=== PATIENT | female | born 1985 | race Caucasian/White ===

== ENCOUNTER 2017-02-27 12:30 | Emergency (ER) | payer SELFPAY ==
[~2017-02-27] VITALS: Ht 157.5 cm; Wt 101.0 kg
[2017-02-27 12:33] VITALS: BP 153/93; PULSE 96; RESP 16; TEMP 98.4; O2SAT 99
[2017-02-27] MEDS ORDERED: SPRI28TA PO (12:53)
[2017-02-27] MEDS ORDERED: KETO10 PO (12:53)
[2017-02-27 12:56] LABS: GLUCOSE,URINE NEG (NEG); KETONE, URINE NEG (NEG); NITRITE,URINE NEG (NEG)
[2017-02-27 13:00] LABS: BLOOD, URINE TRACE (NEG)
[2017-02-27 13:01] LABS: METHOD OF COLLECTION CLEAN CATCH; URINE COLOR STRAW (YELLW/STRAW)
[2017-02-27 13:02] LABS: BACTERIA, URINE MOD /hpf; COMMENT (UR) CULTURE INDICATED; COMMENT2 (UR) MUCOUS PRESENT; CULTURE IF INDICATED CULTURE INDICATED; RBC, URINE 0-3 /hpf (0-3); SQUAMOUS EPITHELIAL CELL URINE > 8 /hpf (0-5); TRANSITIONAL EPI CELLS, URINE 0-5 /hpf
[2017-02-27] MEDS ORDERED: SODIUM CHLOR 0.9% 1000 ML INJ 1,000 ML IV SCH (13:04)
--- NOTE | 2017-02-27 13:08 | PD ---
HPI Chief Complaint: Abdominal Pain Time Seen by Provider: 12:38 Travel History International Travel<30 days: No Contact w/Intl Traveler<30days: No Traveled to known affect area: No History of Present Illness HPI Patient is a 31-year-old female with history of endometriosis presents with right lower quadrant abdominal pain for the past 36 hours. Patient took some Toradol after she called her regular physician and she called in a prescription for her with minimal relief. She's also been having some emesis of mostly food no bile. She states her last emesis did have some minimal blood streaking in it. She also states she's been having some difficulty urinating and has not noticed any burning or funny smells just makes her queasy. No back pain. No fevers. States she called her regular physician again today who recommended she come up here for evaluation. No vaginal bleeding or vaginal discharge, she states the pain is moderate to severe, right lower quadrant no radiation. PFSH Past Medical History Hx Anticoagulant Therapy: No Diabetes: No Diminished Hearing: No Reproductive: Yes (endometriosis) Tetanus Vaccination: Unknown Influenza Vaccination: No ?: Not LMP: 02/15/17 Past Surgical History Other Surgery: Yes (11 sinus, 3 endometriosis) Social History Alcohol Use: No Tobacco Use: No Substance Use: No Allergies-Medications (Allergen,Severity, Reaction): Coded Allergies: Penicillins (Verified Allergy, Severe, 02/27/17) cephalexin (Verified Allergy, Severe, 02/27/17) Reported Meds & Prescriptions Reported Meds & Active Scripts Active Flagyl (Metronidazole) 500 Mg Tab 500 Mg PO BID 7 Days Ultram (Tramadol HCl) 50 Mg Tab 50 Mg PO Q6H PRN Reported Ketorolac (Ketorolac Tromethamine) 10 Mg Tab 10 Mg PO Q6HR PRN Sprintec 28 (Norgestimate-Ethinyl Estradiol) 0.25-35 mg-Mcg Tab 1 Tab PO DAILY Review of Systems Except as stated in HPI: all other systems reviewed are Neg Physical Exam Narrative GENERAL: Well-developed well-nourished, morbidly obese. SKIN: Focused skin assessment warm/dry. HEAD: Atraumatic. Normocephalic. EYES: Pupils equal and round. No scleral icterus. No injection or drainage. ENT: No nasal bleeding or discharge. Mucous membranes pink and moist. NECK: Trachea midline. No JVD. CARDIOVASCULAR: Regular rate and rhythm. No murmur appreciated. RESPIRATORY: No accessory muscle use. Clear to auscultation. Breath sounds equal bilaterally. GASTROINTESTINAL: Abdomen soft, non-tender, nondistended. Hepatic and splenic margins not palpable. Piña sign negative, there is some tenderness at McBurney's point, no rebound no percussive tenderness. Psoas sign is weakly positive, obturator sign negative. GENITOURINARY: Exam performed with female nurse director embalmer present all times, no lesion seen externally nor internally, no bleeding, cervix closed, no true bimanual tenderness to the patient is already had morphine at this point, no cervical motion tenderness, small amount of curd-like vaginal discharge consistent with yeast infection. MUSCULOSKELETAL: No obvious deformities. No clubbing. No cyanosis. No edema. NEUROLOGICAL: Awake and alert. No obvious cranial nerve deficits. Motor grossly within normal limits. Normal speech. PSYCHIATRIC: Appropriate mood and affect; insight and judgment normal. Data Data Last Documented VS Vital Signs Date Time Temp Pulse Resp B/P (MAP) Pulse Ox O2 Delivery O2 Flow Rate FiO2 02/27/17 16:20 02/27/17 15:28 87 18 98 Room Air 02/27/17 12:33 98.4 Orders Orders Urinalysis - C+S If Indicated (02/27/17 12:32) Ed Urine Pregnancytest Poc (02/27/17 12:32) Urine Culture (02/27/17 12:40) Complete Blood Count With Diff (02/27/17 13:04) Comprehensive Metabolic Panel (02/27/17 13:04) Lipase (02/27/17 13:04) Ct Abd/Pel W Iv Contrast(Rout) (02/27/17 13:04) Iv Access Insert/Monitor (02/27/17 13:04) Ecg Monitoring (02/27/17 13:04) Oximetry (02/27/17 13:04) Morphine Inj (Morphine Inj) (02/27/17 13:15) Ondansetron Inj (Zofran Inj) (02/27/17 13:15) Sodium Chlor 0.9% 1000 Ml Inj (Ns 1000 M (02/27/17 13:04) Sodium Chloride 0.9% Flush (Ns Flush) (02/27/17 13:15) Wet Prep Profile (02/27/17 13:04) Gc And Chlamydia Pcr (02/27/17 13:04) Iohexol 350 Inj (Omnipaque 350 Inj) (02/27/17 13:57) Us Pelvis Comp W Dop Transvag (02/27/17 ) Ed Discharge Order (02/27/17 16:00) Labs Laboratory Tests Test 02/27/17 12:40 02/27/17 13:15 02/27/17 14:15 Urine Collection Type CLEAN CATCH Urine Color STRAW Urine Turbidity MOD Urine pH 6.0 Urine Specific [place] 1.011 Urine Protein NEG mg/dL Urine Glucose (UA) NEG mg/dL Urine Ketones NEG mg/dL Urine Occult Blood TRACE Urine Nitrite NEG Urine Bilirubin NEG Urine Leukocyte Esterase MOD Urine RBC 0-3 /hpf Urine WBC 9-14 /hpf Urine WBC Clumps FEW Urine Squamous Epithelial Cells > 8 /hpf Urine Transitional Epithelial Cells 0-5 /hpf Urine Amorphous Sediment FEW Urine Bacteria MOD /hpf Microscopic Urinalysis Comment CULTURE INDICATED Urine Collection Time 1240 White Blood Count 13.0 TH/MM3 Red Blood Count 4.56 MIL/MM3 Hemoglobin 12.1 GM/DL Hematocrit 36.2 % Mean Corpuscular Volume 79.5 FL Mean Corpuscular Hemoglobin 26.4 PG Mean Corpuscular Hemoglobin Concent 33.3 % Red Cell Distribution Width 13.6 % Platelet Count 233 TH/MM3 Mean Platelet Volume 9.3 FL Neutrophils (%) (Auto) 75.5 % Lymphocytes (%) (Auto) 17.9 % Monocytes (%) (Auto) 3.9 % Eosinophils (%) (Auto) 2.2 % Basophils (%) (Auto) 0.5 % Neutrophils # (Auto) 9.8 TH/MM3 Lymphocytes # (Auto) 2.3 TH/MM3 Monocytes # (Auto) 0.5 TH/MM3 Eosinophils # (Auto) 0.3 TH/MM3 Basophils # (Auto) 0.1 TH/MM3 CBC Comment DIFF FINAL Differential Comment Blood Urea Nitrogen 10 MG/DL Creatinine 0.95 MG/DL Random Glucose 118 MG/DL Total Protein 7.2 GM/DL Albumin 3.1 GM/DL Calcium Level 8.5 MG/DL Alkaline Phosphatase 81 U/L Aspartate Amino Transf (AST/SGOT) 11 U/L Alanine Aminotransferase (ALT/SGPT) 23 U/L Total Bilirubin 0.2 MG/DL Sodium Level 137 MEQ/L Potassium Level 3.5 MEQ/L Chloride Level 104 MEQ/L Carbon Dioxide Level 25.7 MEQ/L Anion Gap 7 MEQ/L Estimat Glomerular Filtration Rate 68 ML/MIN Lipase 190 U/L Clue Cells (Wet Prep) NONE SEEN Vaginal Trichomonas (Wet Prep) NONE SEEN Vaginal Yeast (Wet Prep) NONE SEEN Chlamydia trachomatis DNA (PCR) NOT DETECTED Neisseria gonorrhoeae DNA (PCR) NOT DETECTED MDM Medical Decision Making Medical Screen Exam Complete: Yes Emergency Medical Condition: Yes Differential Diagnosis Document pelvic Narrative Course Patient roomed emerged permit, morphine and Zofran given, fairly localized pain to the right lower quadrant. I'm concerned for appendicitis. CT abdomen and pelvis shows no abnormality, on bimanual exam is really unimpressive. Transvaginal ultrasound was ordered and does show no definitive arterial Doppler on the left. The patient has not had any symptoms on the left. I discussed these findings with Dr. Quevedo there is no edema and no cysts and no other structure abnormality of the left ovary. He states given these findings highly unlikely the patient is torsed and he would not recommend any exploratory surgery at this time. Furthermore the patient informs me that she is already and preoperative planning for a total hysterectomy given her history of endometriosis is just waiting for insurance to kick in and then Dr. Harrison will be taking out her uterus and ovaries. The patient does not planning on having any children herself but is considering adoption already. All this being considered there is no indication further workup or treatment at this time. Discussed outpatient needs to call Dr. Harrison today for further evaluation. She stable for discharge. Diagnosis Primary Impression: Pelvic pain in female Med/Other Pt SpecificInfo: Prescription(s) given Scripts Metronidazole (Flagyl) 500 Mg Tab 500 MG PO BID for Infection for 7 Days, #14 TAB 0 Refills Prov: Sebastián White MD 02/27/17 Tramadol (Ultram) 50 Mg Tab 50 MG PO Q6H Y for PAIN, #15 TAB 0 Refills Prov: Sebastián White MD 02/27/17 Disposition: 01 DISCHARGE HOME Condition: Stable Sebastián White MD Feb 27, 2017 13:08
[2017-02-27 13:15] VITALS: RESP 18; O2SAT 97
[2017-02-27] MEDS ORDERED: ONDANSETRON HCL 4 MG/2 ML VIAL IVP ONE (13:15)
[2017-02-27] MEDS ORDERED: MORPHINE SULFATE 4 MG/ML INJ IV PUSH ONE (13:15)
[2017-02-27] MEDS ORDERED: SODIUM CHLORIDE 0.9% FLUSH 10 ML FLUSH IV FLUSH PRN (13:15)
[2017-02-27 13:26] LABS: AUTOMATED NEUTROPHIL # 9.8 TH/MM3 (1.8-7.7); BASOPHIL # 0.1 TH/MM3 (0-0.2); BASOPHIL % 0.5 % (0.0-2.0); EOSINOPHIL # 0.3 TH/MM3 (0-0.4); EOSINOPHIL % 2.2 % (0.0-4.0); HEMATOCRIT 36.2 % (35.0-46.0); LYMPH % 17.9 % (9.0-44.0); LYMPHOCYTE # 2.3 TH/MM3 (1.0-4.8); MEAN CELL VOLUME 79.5 FL (80.0-100.0); MEAN CORPUSCULAR HEMOGLOBIN 26.4 PG (27.0-34.0); MEAN CORPUSCULAR HGB CONC 33.3 % (32.0-36.0); MONO % 3.9 % (0.0-8.0); NEUT % 75.5 % (16.0-70.0); PLATELET COUNT 233 TH/MM3 (150-450); RED BLOOD COUNT 4.56 MIL/MM3 (4.00-5.30); RED CELL DISTRIBUTION WIDTH 13.6 % (11.6-17.2)
[2017-02-27 13:43] LABS: HEMO FLAGS DIFF FINAL
[2017-02-27 13:44] LABS: CHLORIDE 104 MEQ/L (98-107); POTASSIUM 3.5 MEQ/L (3.5-5.1); SODIUM (NA) 137 MEQ/L (136-145)
[2017-02-27 13:48] LABS: ANION GAP 7 MEQ/L (5-15); BICARBONATE 25.7 MEQ/L (21.0-32.0)
[2017-02-27 13:49] LABS: BLOOD UREA NITROGEN 10 MG/DL (7-18)
[2017-02-27 13:51] LABS: ALT (GPT) 23 U/L (10-53); AST (GOT) 11 U/L (15-37); GLOMERULAR FILTRATION RATE 68 ML/MIN (>89)
[2017-02-27 13:53] LABS: TOTAL BILIRUBIN ADULT 0.2 MG/DL (0.2-1.0)
[2017-02-27 13:54] LABS: ALKALINE PHOSPHATASE 81 U/L (45-117)
[2017-02-27] MEDS ORDERED: IOHEXOL 350 MG/ML 10 ML VIAL (for RAD DIAG) IVCONTRAST ONE (13:57)
[2017-02-27 14:00] VITALS: BP 133/83; PULSE 90; RESP 18; O2SAT 97
--- NOTE | 2017-02-27 14:33 | RADRPT ---
EXAM DATE/TIME: 02/27/2017 13:45 [facility] COMPARISON: No previous studies available for comparison. INDICATIONS : Right lower quadrant pain, nausea, vomiting and constipation x 2 days. IV CONTRAST: 85 cc Omnipaque 350 (iohexol) IV ORAL CONTRAST: No oral contrast ingested. RADIATION DOSE: 21.34 CTDIvol (mGy) MEDICAL HISTORY : None SURGICAL HISTORY : None. ENCOUNTER: Initial ACUITY: 2 days PAIN SCALE: 8/10 LOCATION: Right lower quadrant TECHNIQUE: Volumetric scanning of the abdomen and pelvis was performed. Using automated exposure control and ad justment of the mA and/or kV according to patient size, radiation dose was kept as low as reasonably achievable to obtain optimal diagnostic quality images. DICOM format image data is available electro nically for review and comparison. FINDINGS: LOWER LUNGS: The visualized lower lungs are clear. LIVER: Homogeneous density without lesion. There is no dilation of the biliary tree. No calcified gallston es. SPLEEN: Normal size without lesion. PANCREAS: Within normal limits. KIDNEYS: Normal in size and shape. There is no mass, stone or hydronephrosis. 1.8 cm simple cyst is identifie d in the lower pole the left kidney. ADRENAL GLANDS: Within normal limits. VASCULAR: There is no aortic aneurysm. BOWEL/MESENTERY: The stomach, small bowel, and colon demonstrate no acute abnormality. There is no free intraperitone al air or fluid. ABDOMINAL WALL: Within normal limits. RETROPERITONEUM: There is no lymphadenopathy. BLADDER: No wall thickening or mass. REPRODUCTIVE: Within normal limits. INGUINAL: There is no lymphadenopathy or hernia. MUSCULOSKELETAL: Within normal limits for patient age. CONCLUSION: No acute disease. Simple left renal cyst. Robby Turner MD on February 27, 2017 at 14:28 Board Certified Radiologist. This report was verified electronically.
[2017-02-27 15:28] VITALS: BP 117/58; PULSE 87; RESP 18; O2SAT 98
--- NOTE | 2017-02-27 15:42 | RADRPT ---
EXAM DATE/TIME: 02/27/2017 14:37 [facility] COMPARISON: No previous studies available for comparison. INDICATIONS : Right pelvic pain. MEDICAL HISTORY : Endometriosis. SURGICAL HISTORY : Sinus surgery. Pelvic surgery for endometriosis. ENCOUNTER: Initial ACUITY: 1 day PAIN SCORE: 8/10 LOCATION: Bilateral pelvis MEASUREMENTS: UTERUS: 9.0 x 5.4 x 4.5 cm ENDOMETRIAL STRIPE: 5 mm RIGHT OVARY: 2.1 x 1.9 x 2.0 cm LEFT OVARY: Not visualized. FINDINGS: UTERUS: The myometrium has homogeneous echotexture without mass. RIGHT OVARY: Ovary contains no mass or significant cystic lesion.Normal flow is identified on Doppler. LEFT OVARY: Ovary contains no mass or significant cystic lesion. Arterial flow could not be confirmed with Dopple r. MISCELLANEOUS: No free fluid. CONCLUSION: 1. Normal uterus and right ovary. 2. Normal appearing left ovary however arterial flow could not be documented with Doppler. Robby Turner MD on February 27, 2017 at 15:39 Board Certified Radiologist. This report was verified electronically.
[2017-02-27] MEDS ORDERED: METR-1 PO (16:04)
[2017-02-27] MEDS ORDERED: TRAM50 PO (16:04)
[2017-02-27 17:56] LABS: CHLAMYDIA PCR NOT DETECTED (NOT DETECT); NEISSERIA PCR NOT DETECTED (NOT DETECT)
== END 2017-02-27 16:21 | disposition home or self-care (01) ==
LOC: PHED 12:30
DX: R10.2 Pelvic and perineal pain (principal); N80.9 Endometriosis, unspecified; R11.10 Vomiting, unspecified
CPT/HCPCS: 74177; 76830; 76856; 80053; 81001; 83690; 84703; 85025; 87086; 87210; 87491; 87591; 93975; 96361; 96374; 96375; 99285; J2270; J2405; J7030; Q9967

== ENCOUNTER 2017-03-01 17:48 | Emergency (ER) | payer SELFPAY ==
[~2017-03-01] VITALS: Ht 157.5 cm; Wt 100.3 kg
[~2017-03-01 17:48] MED LIST: KETO10 PO; METR-1 PO; SPRI28TA PO; TRAM50 PO
[2017-03-01 17:51] VITALS: BP 170/100; PULSE 94; RESP 16; TEMP 98.4; O2SAT 97
[2017-03-01] MEDS ORDERED: SODIUM CHLOR 0.9% 1000 ML INJ 1,000 ML IV ONE (18:15)
[2017-03-01] MEDS ORDERED: MORPHINE SULFATE 4 MG/ML INJ IV PUSH ONE (18:15)
[2017-03-01] MEDS ORDERED: ONDANSETRON HCL 4 MG/2 ML VIAL IV PUSH ONE (18:15)
[2017-03-01 18:46] LABS: AUTOMATED NEUTROPHIL # 4.7 TH/MM3 (1.8-7.7); BASOPHIL # 0.1 TH/MM3 (0-0.2); BASOPHIL % 1.3 % (0.0-2.0); EOSINOPHIL # 0.3 TH/MM3 (0-0.4); EOSINOPHIL % 3.2 % (0.0-4.0); HEMATOCRIT 36.9 % (35.0-46.0); HEMO FLAGS DIFF FINAL; LYMPH % 32.3 % (9.0-44.0); LYMPHOCYTE # 2.8 TH/MM3 (1.0-4.8); MEAN CELL VOLUME 79.8 FL (80.0-100.0); MEAN CORPUSCULAR HGB CONC 32.6 % (32.0-36.0); NEUT % 55.2 % (16.0-70.0); PLATELET COUNT 249 TH/MM3 (150-450); RED BLOOD COUNT 4.62 MIL/MM3 (4.00-5.30); RED CELL DISTRIBUTION WIDTH 13.9 % (11.6-17.2); WHITE BLOOD COUNT 8.6 TH/MM3 (4.0-11.0)
--- NOTE | 2017-03-01 18:50 | PD ---
HPI Chief Complaint: Public Safety Director Problem/Complaint Time Seen by Provider: 17:58 Travel History International Travel<30 days: No Contact w/Intl Traveler<30days: No Traveled to known affect area: No History of Present Illness HPI Patient is a 31-year-old female with history of endometriosis, who comes in complaining of lower abdominal pain. She was here a few days ago and had a pelvic ultrasound performed. There was a concern on the ultrasound at that time with no flow to the left ovary, however the air defense specialist at the time felt it did not appear to be torsion. She was told to return if her pain got worse. She says the pain has become worse and now is spreading across her abdomen. She had some nausea, but no vomiting. She denies fever or chills. She does have some low back pain. She has appointment with her air defense specialist on Saturday. Her air defense specialist suggested she come here since she was unable to fit her in today. She has been taking tramadol for the pain, but says it's not helping. PFSH Past Medical History Hx Anticoagulant Therapy: No Diabetes: No Diminished Hearing: No Reproductive: Yes (endometriosis) Tetanus Vaccination: Unknown ?: Not LMP: 02/15/17 Past Surgical History Other Surgery: Yes (11 sinus, 3 endometriosis) Social History Alcohol Use: No Tobacco Use: No Substance Use: No Allergies-Medications (Allergen,Severity, Reaction): Coded Allergies: Penicillins (Verified Allergy, Severe, 03/01/17) cephalexin (Verified Allergy, Severe, 03/01/17) Reported Meds & Prescriptions Reported Meds & Active Scripts Active Reported Sprintec 28 (Norgestimate-Ethinyl Estradiol) 0.25-35 mg-Mcg Tab 1 Tab PO DAILY Review of Systems Except as stated in HPI: all other systems reviewed are Neg General / Constitutional: No: Fever, Chills HENT: No: Headaches, Lightheadedness Cardiovascular: No: Chest Pain or Discomfort Respiratory: No: Shortness of Breath Gastrointestinal: Positive: Nausea, Abdominal Pain, No: Vomiting Genitourinary: Positive: Dysuria, No: Flank Pain Musculoskeletal: No: Myalgias, Edema Skin: No Rash, No Change in Pigmentation Neurologic: No: Weakness, Dizziness Physical Exam Narrative GENERAL: Awake and alert, in no acute distress. SKIN: Focused skin assessment warm/dry. HEAD: Atraumatic. Normocephalic. EYES: Pupils equal and round. No scleral icterus. ENT: Mucous membranes pink and moist. NECK: Trachea midline. No JVD. CARDIOVASCULAR: Regular rate and rhythm. No murmur appreciated. RESPIRATORY: No accessory muscle use. Clear to auscultation. Breath sounds equal bilaterally. GASTROINTESTINAL: Abdomen soft, nondistended. Tender to palpation across the lower abdomen. Worse in the right lower quadrant and suprapubic area. MUSCULOSKELETAL: No obvious deformities. No clubbing. No cyanosis. No edema. NEUROLOGICAL: Awake and alert. No obvious cranial nerve deficits. Motor grossly within normal limits. Normal speech. PSYCHIATRIC: Appropriate mood and affect; insight and judgment normal. Data Data Last Documented VS Vital Signs Date Time Temp Pulse Resp B/P (MAP) Pulse Ox O2 Delivery O2 Flow Rate FiO2 03/01/17 17:51 98.4 94 16 170/100 (123) 97 Orders Orders Iv Access Insert/Monitor (03/01/17 18:09) Complete Blood Count With Diff (03/01/17 18:09) Comprehensive Metabolic Panel (03/01/17 18:09) Us Pelvis Comp Public Safety Director/Non-Preg (03/01/17 ) Morphine Inj (Morphine Inj) (03/01/17 18:15) Ondansetron Inj (Zofran Inj) (03/01/17 18:15) Sodium Chlor 0.9% 1000 Ml Inj (Ns 1000 M (03/01/17 18:15) Labs Laboratory Tests Test 03/01/17 18:35 [facility] Medical Decision Making Medical Screen Exam Complete: Yes Emergency Medical Condition: Yes Medical Record Reviewed: Yes Differential Diagnosis Ovarian torsion versus endometriosis versus UTI Narrative Course Patient is a 31-year-old female who comes in complaining of lower abdominal pain. Exam shows suprapubic tenderness as well as right lower quadrant tenderness. IV established, labs sent. Ultrasound ordered to recheck the left ovary. Patient signed out to Dr. Landeros to follow up testing and disposition the patient. Lupe Fernando MD Mar 01, 2017 18:50
[2017-03-01 18:55] VITALS: BP 122/75; PULSE 78; RESP 14; O2SAT 98
[2017-03-01 18:55] LABS: CHLORIDE 105 MEQ/L (98-107); SODIUM (NA) 138 MEQ/L (136-145)
[2017-03-01 18:59] LABS: ANION GAP 9 MEQ/L (5-15); BICARBONATE 23.6 MEQ/L (21.0-32.0); BLOOD UREA NITROGEN 10 MG/DL (7-18)
[2017-03-01 19:02] LABS: ALT (GPT) 23 U/L (10-53); AST (GOT) 10 U/L (15-37); GLOMERULAR FILTRATION RATE 81 ML/MIN (>89)
[2017-03-01 19:04] LABS: TOTAL BILIRUBIN ADULT 0.2 MG/DL (0.2-1.0)
[2017-03-01 19:05] LABS: ALKALINE PHOSPHATASE 72 U/L (45-117)
--- NOTE | 2017-03-01 19:26 | PD ---
Physical Exam Date Seen by Provider: Mar 01, 2017 Time Seen by Provider: 19:25 Narrative Accepted in transfer of care from Dr. Fernando GENERAL: Well developed well-nourished female in no acute distress no respiratory distress GASTROINTESTINAL: Abdomen soft, non-tender, nondistended. . Data Data Last Documented VS Vital Signs Date Time Temp Pulse Resp B/P (MAP) Pulse Ox O2 Delivery O2 Flow Rate FiO2 03/01/17 18:55 78 14 03/01/17 18:55 122/75 (91) 98 Room Air 03/01/17 17:51 98.4 Orders Orders Iv Access Insert/Monitor (03/01/17 18:09) Complete Blood Count With Diff (03/01/17 18:09) Comprehensive Metabolic Panel (03/01/17 18:09) Morphine Inj (Morphine Inj) (03/01/17 18:15) Ondansetron Inj (Zofran Inj) (03/01/17 18:15) Sodium Chlor 0.9% 1000 Ml Inj (Ns 1000 M (03/01/17 18:15) Us Pelvis Comp W Doppler (03/01/17 ) Ketorolac Inj (Toradol Inj) (03/01/17 20:30) Ed Discharge Order (03/01/17 20:26) Labs Laboratory Tests Test 03/01/17 18:35 White Blood Count 8.6 TH/MM3 Red Blood Count 4.62 MIL/MM3 Hemoglobin 12.0 GM/DL Hematocrit 36.9 % Mean Corpuscular Volume 79.8 FL Mean Corpuscular Hemoglobin 26.0 PG Mean Corpuscular Hemoglobin Concent 32.6 % Red Cell Distribution Width 13.9 % Platelet Count 249 TH/MM3 Mean Platelet Volume 9.1 FL Neutrophils (%) (Auto) 55.2 % Lymphocytes (%) (Auto) 32.3 % Monocytes (%) (Auto) 8.0 % Eosinophils (%) (Auto) 3.2 % Basophils (%) (Auto) 1.3 % Neutrophils # (Auto) 4.7 TH/MM3 Lymphocytes # (Auto) 2.8 TH/MM3 Monocytes # (Auto) 0.7 TH/MM3 Eosinophils # (Auto) 0.3 TH/MM3 Basophils # (Auto) 0.1 TH/MM3 CBC Comment DIFF FINAL Differential Comment Blood Urea Nitrogen 10 MG/DL Creatinine 0.82 MG/DL Random Glucose 98 MG/DL Total Protein 7.6 GM/DL Albumin 3.3 GM/DL Calcium Level 8.6 MG/DL Alkaline Phosphatase 72 U/L Aspartate Amino Transf (AST/SGOT) 10 U/L Alanine Aminotransferase (ALT/SGPT) 23 U/L Total Bilirubin 0.2 MG/DL Sodium Level 138 MEQ/L Potassium Level 4.0 MEQ/L Chloride Level 105 MEQ/L Carbon Dioxide Level 23.6 MEQ/L Anion Gap 9 MEQ/L Estimat Glomerular Filtration Rate 81 ML/MIN [facility] Medical Record Reviewed: Yes Supervised Visit with SHANE: No Interpretation(s) Last Impressions Pelvis Ultrasound 03/01/17 0000 Signed Impressions: Service Date/Time: Wednesday, March 01, 2017 18:56 - CONCLUSION: 1. Some free fluid within the cul-de-sac. 2. Small right ovarian cyst measuring 1.5 cm in greatest dimension. 3. Unremarkable uterus and left ovary. Sebastián Naranjo MD (@ 20:[address] Naranjo --"blood flow is noted to both ovaries") CBC & BMP Diagram 03/01/17 18:35 Total Protein 7.6, Albumin 3.3 L, Calcium Level 8.6, Alkaline Phosphatase 72, Aspartate Amino Transf (AST/SGOT) 10 L, Alanine Aminotransferase (ALT/SGPT) 23, Total Bilirubin 0.2 Vital Signs Date Time Temp Pulse Resp B/P (MAP) Pulse Ox O2 Delivery O2 Flow Rate FiO2 03/01/17 18:55 78 14 03/01/17 18:55 78 14 122/75 (91) 98 Room Air 03/01/17 18:55 14 03/01/17 17:51 98.4 94 16 170/100 (123) 97 Differential Diagnosis Accepted in transfer of care from Dr. Fernando, please refer to her dictation Narrative Course Accepted in transfer of care from Dr. Fernando for follow-up of pending ultrasound results At 20:15 p.m. patient ultrasound is identified to show small amount of free fluid in the cul-de-sac small ovarian cyst on the right and per reading radiologist Dr. Naranjo. Blood flow to both ovaries. Patient is stable for outpatient management and follow-up with her field operations technician. Patient informed of imaging results and is stable for outpatient management continues to have some soreness to the right lower quadrant. Pain is felt to be related to probably ruptured small ovarian cyst and her history of endometriosis patient has good blood flow to both ovaries unlikely that this has a correlation with ovarian torsion. Visit on 02/27/17 identified an abnormal urinalysis however culture is only 10-50,000 of mixed gram-positive cassie consistent with contaminant. Diagnosis Primary Impression: Pelvic pain in female Additional Impressions: Ovarian cyst Qualified Codes: N83.201 - Unspecified ovarian cyst, right side History of endometriosis Referrals: Paper Products Supervisor 2 days Patient Instructions: General Instructions Additional Instruction: Follow-up with field operations technician call office on Saturday schedule follow-up appointment Take Anaprox as needed for pain associated with inflammation Increase fluid hydration Return to the emergency for for fever pain vomiting or any concerns no work 2 days Med/Other Pt SpecificInfo: Prescription(s) given Scripts Naproxen Sodium DS (Anaprox DS) 550 Mg Tab 550 MG PO Q12HR Y for PAIN GREATER THAN 5, #12 TAB 0 Refills Prov: Esha Landeros MD 03/01/17 Disposition: 01 DISCHARGE HOME Condition: Stable Esha Landeros MD Mar 01, 2017 19:26
--- NOTE | 2017-03-01 19:52 | RADRPT ---
EXAM DATE/TIME: 03/01/2017 18:56 CORRECTION Corrected on: March 01, 2017; [facility] COMPARISON: No previous studies available for comparison. INDICATIONS : Pelvic pain. MEDICAL HISTORY : Pelvic pain. Endometriosis. SURGICAL HISTORY : None. ENCOUNTER: Initial ACUITY: 4-6 days PAIN SCORE: 8/10 LOCATION: Right pelvis MEASUREMENTS: UTERUS: 9.7 x 3.9 x 5.9 cm ENDOMETRIAL STRIPE: 9 mm RIGHT OVARY: 3.8 x 2.4 x 2.4 cm LEFT OVARY: 2.6 x 1.4 x 2.1 cm FINDINGS: UTERUS: The myometrium has homogeneous echotexture without mass. RIGHT OVARY: There is a small right ovarian cyst measuring 1.5 x 0.8 x 0.9 cm. Blood flow is identified. LEFT OVARY: Ovary contains no mass or significant cystic lesion. Blood flow is identified. MISCELLANEOUS: Some free fluid is noted within the cul-de-sac. CONCLUSION: 1. Blood flow to both ovaries is noted. 2. Some free fluid within the cul-de-sac. 3. Small right ovarian cyst measuring 1.5 cm in greatest dimension. 4. Unremarkable uterus and left ovary. Sebastián Naranjo MD on March 01, 2017 at 19:48 Board Certified Radiologist. This report was verified electronically. Sebastián Naranjo MD on March 01, 2017 at 20:22 Board Certified Radiologist. This report was verified electronically.
[2017-03-01] MEDS ORDERED: NAPR5TAB5 PO (20:24)
[2017-03-01 20:30] VITALS: BP 118/62; PULSE 79; RESP 14; O2SAT 98
[2017-03-01] MEDS ORDERED: KETOROLAC TROMETHAMINE 30 MG/ML (IVP) VIAL IV PUSH ONE (20:30)
== END 2017-03-01 20:54 | disposition home or self-care (01) ==
LOC: PHED 17:48
DX: N83.201 Unspecified ovarian cyst, right side (principal); R10.2 Pelvic and perineal pain; N80.9 Endometriosis, unspecified
CPT/HCPCS: 76856; 80053; 85025; 93975; 96361; 96374; 96375; 99285; J1885; J2270; J2405; J7030

== ENCOUNTER 2017-07-12 08:36 | Inpatient (IN) | payer OTHER ==
[2017-07-12] VITALS: BP 120/58; PULSE 74; RESP 18; TEMP 98.4; O2SAT 98
[~2017-07-12] VITALS: Ht 160 cm; Wt 98.1 kg
--- NOTE | 2017-07-12 07:30 | PD.OP ---
Operative Report Date of Surgery: Jul 12, 2017 Preoperative Diagnosis: (1) Endometriosis of pelvic peritoneum (2) Bilateral polycystic ovarian syndrome (3) Pelvic and perineal pain Postoperative Diagnosis: (1) Endometriosis of pelvic peritoneum (2) Bilateral polycystic ovarian syndrome (3) Pelvic and perineal pain (4) Adnexal adhesions (5) Pelvic adhesions Procedure: 1. supracervical abdominal hysterectomy 2. bilateral salpingo-oophorectomy 3. EMMIE Anesthesia: GETA Surgeon: Brooklyn Harrison Buffing Wheel Presser(s): OR staff Operation and Findings: IVF: 1700 ml LR + IV antibiotics given prior to surgery + Methylene blue EBL: 100 ml UO: 200 ml Findings: 1, extensive pelvic and abdominal adhesions 2. extensive endometriosis 3. normal size uterus, normal tubes and ovaries Specimens: uterus, tubes and ovaries Complications: none Condition: stable Disposition: PACU Description of the procedure: The risks, benefits and alternatives of the procedure were discussed with the patient. Informed consent was obtained after questions were answered. The patient was then transferred to the operating room with her IV running. Antibiotics were given prior to surgery. She was placed in the supine position and was given general anesthesia without difficulties or complications. The patient was placed in the dorsal lithotomy position and was prepped and draped in the usual sterile fashion . Attention was then turned to the patient's pelvis. A bivalve speculum was placed inside the patient's vagina. The anterior aspect of the cervix was grasped with a single tooth tenaculum for manipulation. The cervix was carefully dilated. A uterine manipulator was placed inside the uterus. The rest of the instruments were removed from the patient's vagina. The surgeon changed gloves and attention was then turned to the patient's abdomen. A Pfannenstiel skin incision was then made with the scalpel. The incision was extended to the fascia with the Bovie. The fascia was incised in the midline with a scalpel. The fascial incision was then extended sharply with Mendez scissors. Next, the rectus muscles were in the midline with a hemostat and the peritoneum was identified and entered bluntly. Lysis of adhesions was needed several times during the procedure in order to proceed with surgery. A [place] retractor was placed inside the patient's abdomen. Care was taken to place moist laps under the blades. The bowel was carefully packed away with moist laparotomy sponges. A bladder blade was also introduced inside the pelvic cavity. The left round ligament was identified, clamped, electrocauterized and cut the hand held Harmonic scalpel. Adequate hemostasis was noted. The left infundibulopelvic ligament was clamped, electrocauterized and cut the the hand-held Harmonic scalpel The same was done on the right side after lysis of adhesions allowed the procedure to continue. Good hemostasis was noted as well. The tissues along the uterus were serially doubly clamped, transected and suture ligated times two with 0-Vicryl. Good hemostasis was noted. The utero-cervical junction was transected with the Bovie. The tissues were removed and sent to pathology. Running, locked stitches of 0-Vicryl were used along the cervix and vaginal cuff angles in order to achieve excellent hemostasis. The endocervix was electrocauterized with the Bovie. Copious irrigation was done several times. The ureters were not identified well due to the difficulty of the surgery and the adhesions encountered. Methylene blue dye was given at the beginning of the surgery; no spillage or blockage was noted. Excellent hemostasis was noted at all the surgical sites and pedicles. Surgicel powder was placed over the cervix and surgical sites. All the instruments were removed from the patient's pelvis and vagina. The instrument count was correct times three. The bowel was carefully inspected and noted to be intact. The peritoneum was closed with running stitches of 0 Vicryl. The rectus muscles were reapproximated with running stitches of 0-Vicryl. The fascia was reapproximated with running stitches of looped 0-PDS. The subcutaneous tissues were copiously irrigated and reapproximated with running stitches using 2-0 Vicryl. The skin was reapproximated with running stitches of Monocryl on a curved needle. Mastisol and steri strips were placed over the incision. The umbilical skin incision was also closed with Monocryl and covered with band aids. The patient was successfully extubated and taken to PACU in stable condition. Note: I discussed surgical findings and surgical procedures with patient's and parents. Their questions were answered. They verbalized understanding and agreement to the procedures done. Brooklyn Harrison MD Jul 12, 2017 07:29
[~2017-07-12 08:36] MED LIST changes: -KETO10 PO; -METR-1 PO; +NAPR5TAB5 PO; -TRAM50 PO
[2017-07-12] MEDS ORDERED: METOPROLOL TARTRATE 25 MG TAB PO PRN (09:15)
[2017-07-12] MEDS ORDERED: SODIUM CHLORID 0.9% 500 ML IV PRN (09:15)
[2017-07-12] MEDS ORDERED: POVIDONE IODINE 5% (ANTISEPSIS KIT) 4 APPLICATIONS EACH NARE PRN (09:15)
[2017-07-12] MEDS ORDERED: LACTATED RINGER'S 1000 ML IV PRN (09:15)
[2017-07-12] MEDS ORDERED: CHLORHEXIDINE GLUCONATE 2 % 1 PACK (2 CLOTHS) TOPICAL PRN (09:15)
[2017-07-12] MEDS ORDERED: APREPITANT 40 MG CAP ONE (09:46)
[2017-07-12] MEDS ORDERED: CLINDAMYCIN 900 MG/NS PREMIX 50 ML IV ONE (10:00)
[2017-07-12] MEDS ORDERED: ACETAMINOPHEN 1000 MG/100 ML 100 ML IV ONE (11:07)
[2017-07-12] MEDS ORDERED: BUPIVACAINE HCL PF 0.5% 30 ML VIAL ONE (11:08)
[2017-07-12] MEDS ORDERED: HYDROmorphone HCL PF 2 MG/ML VIAL ONE (11:08)
[2017-07-12] MEDS ORDERED: SUGAMMADEX SODIUM 200 MG/2 ML VIAL IV PUSH ONE (11:08)
[2017-07-12] MEDS ORDERED: KETOROLAC TROMETHAMINE 30 MG/ML (IVP) VIAL IV PUSH ONE (12:00)
[2017-07-12] MEDS ORDERED: ROCURONIUM INJ 50 MG/5 ML SYRINGE IV PUSH ONE (12:00)
[2017-07-12] MEDS ORDERED: ONDANSETRON HCL 4 MG/2 ML VIAL IV ONE (12:00)
[2017-07-12] MEDS ORDERED: LIDOCAINE HCL 1% PF 5 ML SYRINGE OTHER ONE (12:00)
[2017-07-12] MEDS ORDERED: DEXAMETHASONE SOD PHOS 4 MG/ML VIAL IV ONE (12:00)
[2017-07-12] MEDS ORDERED: PROPOFOL 200 MG/20 ML AMP IV ONE (12:00)
[2017-07-12] MEDS ORDERED: LACTATED RINGER'S 1000 ML INJ 1,000 ML IV ONE (12:00)
[2017-07-12] MEDS ORDERED: LORazepam 0.5 MG TAB PO PRN (14:00)
[2017-07-12] MEDS ORDERED: APREPITANT 40 MG CAP PO ONE (14:00)
[2017-07-12] MEDS ORDERED: SODIUM CHLORIDE 0.9% FLUSH 10 ML FLUSH IV FLUSH PRN (14:00)
[2017-07-12] MEDS ORDERED: DOCUSATE SODIUM 100 MG CAP PO PRN (14:00)
[2017-07-12] MEDS ORDERED: oxyCODONE/ACETAMINOPHEN 5 MG/325 MG TAB PO PRN (14:00)
[2017-07-12] MEDS ORDERED: ZOLPIDEM TARTRATE 5 MG TAB PO PRN (14:00)
[2017-07-12] MEDS: LACTATED RINGER'S 1000 ML INJ 1,000 ML IV SCH ×2 (14:00→21:50)
[2017-07-12] MEDS ORDERED: diphenhydrAMINE HCL 25 MG CAP PO PRN (14:00)
[2017-07-12] MEDS ORDERED: DO NOT ADM ANY ANTICOAGULANT DRUGS PRN (14:00)
[2017-07-12] MEDS ORDERED: diphenhydrAMINE HCL 50 MG/ML VIAL IV PUSH PRN (14:00)
[2017-07-12] MEDS ORDERED: MIDAZOLAM HCL 2 MG/2 ML VIAL ONE (14:09)
[2017-07-12] MEDS ORDERED: PILL SPLITTER OTHER PRN (14:15)
[2017-07-12] MEDS ORDERED: *morphine SULFATE 4 MG/ML PERIprocedure ONLY ONE ×2 (14:21→14:43)
[2017-07-12] MEDS ORDERED: *ONDANSETRON 4 MG VIAL PERIprocedural Use ONLY ONE (14:24)
[2017-07-12] MEDS ORDERED: *PROMETHAZINE 25 MG/ML VIAL PERIprocedural use ONLY ONE (14:45)
[2017-07-12 15:20] VITALS: BP 104/54; PULSE 81; RESP 18; TEMP 97.9; O2SAT 98
[2017-07-12] MEDS: ACETAMINOPHEN 1000 MG/100 ML 100 ML IV SCH (18:14)
[2017-07-12 20:00] VITALS: BP 111/61; PULSE 64; RESP 18; TEMP 98.3; O2SAT 100
[2017-07-12] MEDS: SODIUM CHLORIDE 0.9% FLUSH 10 ML FLUSH IV FLUSH SCH (21:00)
[2017-07-12] MEDS: MORPHINE SULFATE 2 MG/ML SYRINGE IV PUSH PRN (21:50)
[2017-07-12] MEDS: ONDANSETRON HCL 4 MG/2 ML VIAL IV PUSH PRN (22:04)
[2017-07-13] VITALS (7 sets, daily range): BP systolic 94–120; BP diastolic 50–61; PULSE 66–93; RESP 16–20; TEMP 98–98.5; O2SAT 98–100
[2017-07-13] MEDS: ACETAMINOPHEN 1000 MG/100 ML 100 ML IV SCH ×3 (00:02→12:50)
[2017-07-13] MEDS: LACTATED RINGER'S 1000 ML INJ 1,000 ML IV SCH (06:01)
[2017-07-13 06:03] LABS: AUTOMATED NEUTROPHIL # 9.1 TH/MM3 (1.8-7.7); BASOPHIL % 0.2 % (0.0-2.0); EOSINOPHIL % 0.1 % (0.0-4.0); HEMATOCRIT 33.4 % (35.0-46.0); HEMOGLOBIN 11.1 GM/DL (11.6-15.3); LYMPH % 17.2 % (9.0-44.0); LYMPHOCYTE # 2.1 TH/MM3 (1.0-4.8); MEAN CELL VOLUME 84.8 FL (80.0-100.0); MEAN CORPUSCULAR HEMOGLOBIN 28.3 PG (27.0-34.0); MEAN CORPUSCULAR HGB CONC 33.4 % (32.0-36.0); MEAN PLATELET VOLUME 9.6 FL (7.0-11.0); MONO % 7.7 % (0.0-8.0); MONOCYTE # 0.9 TH/MM3 (0-0.9); NEUT % 74.8 % (16.0-70.0); PLATELET COUNT 209 TH/MM3 (150-450); RED BLOOD COUNT 3.94 MIL/MM3 (4.00-5.30); RED CELL DISTRIBUTION WIDTH 13.4 % (11.6-17.2); WHITE BLOOD COUNT 12.2 TH/MM3 (4.0-11.0)
[2017-07-13 06:24] LABS: CREATININE 0.67 MG/DL (0.50-1.00)
[2017-07-13] MEDS: SODIUM CHLORIDE 0.9% FLUSH 10 ML FLUSH IV FLUSH SCH (07:58)
--- NOTE | 2017-07-13 09:09 | HHI.PR ---
Subjective Remarks Doing well, pain is well controlled, eating well. Patient is concerned about getting up / feeling pain Objective Vital Signs Vital Signs Date Time Temp Pulse Resp B/P (MAP) Pulse Ox O2 Delivery O2 Flow Rate FiO2 07/13/17 04:00 98.5 70 20 98/56 (70) 100 07/13/17 00:00 98.4 74 18 120/58 (78) 98 07/12/17 20:00 98.3 64 18 111/61 (78) 100 07/12/17 15:20 97.9 81 18 104/54 (71) 98 07/12/17 14:15 86 15 96/51 (66) 97 Nasal Cannula 3 07/12/17 14:00 98.6 96 13 112/51 (71) 98 Nasal Cannula 3 07/12/17 09:49 98.3 69 15 109/67 (81) 100 I/O 07/12/17 07/12/17 07/12/17 07/13/17 07/13/17 07/13/17 07:00 15:00 23:00 07:00 15:00 23:00 Intake Total 1700 ml 1784 ml Output Total 300 ml 100 ml Balance 1400 ml 1684 ml Intake Oral 500 ml IV Total 1700 ml 1284 ml Output Urine Total 200 ml 100 ml Estimated Blood Loss 100 ml # Voids 1 Result Diagram: 07/13/17 0554 07/13/17 0554 Objective Remarks Chest is clear, regular rate and rhythm. Abdomen is soft and non-distended. Incision is clean and dry. Ext no CCE. A/P Assessment and Plan Post Op Day 1 Doing well Home tomorrow and return to office in two weeks. Brooklyn Harrison MD Jul 13, 2017 09:09
[2017-07-13] MEDS: MORPHINE SULFATE 2 MG/ML SYRINGE IV PUSH PRN ×2 (09:32→12:50)
[2017-07-13] MEDS: ONDANSETRON HCL 4 MG/2 ML VIAL IV PUSH PRN (09:43)
[2017-07-13] MEDS ORDERED: ONDANSETRON ODT 4 MG TAB PO PRN (14:15)
[2017-07-13] MEDS ORDERED: MORPHINE SULFATE 4 MG/ML INJ IM PRN ×2 (14:15→14:30)
--- NOTE | 2017-07-13 14:16 | HHI.DCPOC ---
Discharge Care Plan Diagnosis: (1) Endometriosis of pelvic peritoneum (2) Pelvic adhesions (3) Pelvic and perineal pain Report Symptoms to Your Doctor -Temperature above 100.5 degrees -Redness, of incision or excessive or foul smelling drainage -Unusual pain or calf pain -Increased vaginal bleeding -Painful or difficulty urinating -Feelings of extreme sadness or anxiety after 2 weeks Goals to Promote Your Health * To prevent worsening of your condition and complications * To maintain your health at the optimal level Directions to Meet Your Goals Take your medications as prescribed Follow your dietary instruction Follow activity as directed Ensure plenty of rest for recovery Drink fluids for hydration Keep your appointments as scheduled Take your immunizations and boosters as scheduled If your symptoms worsen call your PCP, if no PCP go to Urgent Care Center or Emergency Room Smoking is Dangerous to Your Health. Avoid second hand smoke Call the 24-hour crisis hotline for domestic abuse at Brooklyn Harrison MD Jul 13, 2017 14:16
[2017-07-13] MEDS: IBUPROFEN 600 MG TAB PO PRN (17:12)
[2017-07-13] MEDS: oxyCODONE/ACETAMINOPHEN 10 MG/325 MG TAB PO PRN ×2 (17:13→21:15)
[2017-07-14] MEDS: IBUPROFEN 600 MG TAB PO PRN (03:33)
[2017-07-14] MEDS: oxyCODONE/ACETAMINOPHEN 10 MG/325 MG TAB PO PRN (03:33)
[2017-07-14 03:55] VITALS: BP 108/55; PULSE 72; RESP 18; TEMP 98
[2017-07-14 09:05] VITALS: BP 110/57; PULSE 80; RESP 18; TEMP 98.7
== END 2017-07-14 12:19 | disposition home or self-care (01) | DRG 743 ==
LOC: HSDI 08:36 → EDSTATUS 11:00 → H1EA 14:59
PROVIDERS: ADMIT Obstetrics & Gynecology; ATTEND Obstetrics & Gynecology
PROC: 0UT70ZZ Resection of Bilateral Fallopian Tubes, Open Approach (ICD-10-PCS; 2017-07-12)
PROC: 0UT20ZZ Resection of Bilateral Ovaries, Open Approach (ICD-10-PCS; 2017-07-12)
PROC: 0DNW0ZZ Release Peritoneum, Open Approach (ICD-10-PCS; 2017-07-12)
PROC: 0UT90ZL Resection of Uterus, Supracervical, Open Approach (ICD-10-PCS; principal; 2017-07-12 11:32)
DX: N80.3 Endometriosis of pelvic peritoneum (principal); E28.2 Polycystic ovarian syndrome; N73.6 Female pelvic peritoneal adhesions (postinfective); R10.2 Pelvic and perineal pain
CPT/HCPCS: 82565; 84132; 84703; 85025; 86850; 86900; 86901; 88307; 94150; C1765; J0131; J1100; J1170; J1885; J2250; J2270; J2405; J2550; J3010; J7120; J8501